=== PATIENT | female | born 1960 | race Hispanic/Latino ===

== ENCOUNTER → 2018-09-12 | Outpatient (CLI) | payer OTHER ==
--- NOTE | 2018-09-12 16:32 | Diagnostic Imaging Report ---
EXAMINATION: PA and lateral views of the chest. COMPARISON: None CLINICAL HISTORY: +PPD test DISCUSSION: Lungs are well-inflated. No focal consolidation, pleural effusion, or pneumothorax. Tortuous thoracic aorta. Normal heart size. No pulmonary edema. No acute osseous abnormality. IMPRESSION: No acute cardiopulmonary abnormality. No radiographic findings of active granulomatous infection. Signed by: Dr. Pk Braun M.D. on 09/12/2018 4:29 PM
== END ==
LOC: RAD 15:24
PROVIDERS: ATTEND Internal Medicine
DX: R76.11 Nonspecific reaction to tuberculin skin test without active tuberculosis (principal)
CPT/HCPCS: 71046

== ENCOUNTER → 2019-01-10 | Outpatient (CLI) | payer BC ==
--- NOTE | 2019-01-10 16:16 | Diagnostic Imaging Report ---
EXAMINATION: Bone mineral density study. COMPARISON: None. HISTORY: Screening for osteoporosis DISCUSSION: Evaluation of the left hip and lumbar spine was performed utilizing a DEXA Hologic bone densitometer. The study is technically adequate. The left hip total bone mineral density is 0.785 gm/cm2, the T-score is -1.3, and the Z-score is -0.4. The left hip femoral neck bone mineral density is 0.732 gm/cm2, the T-score is -1.2, and the Z-score is 0.0. The lumbar spine total bone mineral density is 0.901 gm/cm2, the T-score is -1.3, and the Z-score is 0.0. IMPRESSION: 1. WHO classification of osteopenia for the left hip with increased risk of fracture. 10 year major osteoporotic fracture risk 3.9% 2. WHO classification of osteopenia for the lumbar spine with increased risk of fracture. The patient's fracture risk is compared to an age-matched control. Medical evaluation for secondary causes of low bone bone mineral density may be appropriate. Correlate clinically for the necessity and timing of the next bone mineral density study. National [employer]opor[employer] recommendations: Initiate therapy to reduce fracture risk in postmenopausal women with -BMD t-scores below -2.0 by central DXA with no risk factors -BMD t-scores below -1.5 by central DXA with one or more risk factors (first deg relative with hip fracture, prior personal fracture, low body weight, smoking) -A prior vertebral or hip fracture AACE (Clinical Endocrinology) recommends treating the following: Postmenopausal women who have osteoporosis as diagnosed by fragility fractures or t scores -2.5 or below Postmenopausal women who have risk factors (including fh of hip fracture, low body weight, smoking, risk of falling, high bone turnover, advancing age) and borderline low BMD T scores of -1.5 or below Adequate intake of calcium (at least 1200mg/day) and vitamin D (400-800 IU/day). Regular weight bearing and muscle - strengthening exercises Avoid smoking and excessive alcohol Signed by: Dr. Moe Lainez M.D. on 01/10/2019 4:13 PM
== END ==
LOC: MAMMO 15:04
PROVIDERS: ATTEND Internal Medicine Endocrinology, Diabetes & Metabolism
DX: Z12.31 Encounter for screening mammogram for malignant neoplasm of breast (principal); Z13.820 Encounter for screening for osteoporosis
CPT/HCPCS: 77067; 77080

== ENCOUNTER → 2020-02-15 | Outpatient (CLI) | payer OTHER ==
--- NOTE | 2020-02-15 14:18 | Diagnostic Imaging Report ---
EXAMINATION: SP LUMBAR, COMPLETE MIN 4VW, SACRUM X-RAY INDICATION: Spondylosis COMPARISON: None FINDINGS: AP, lateral and oblique radiographs of the lumbar spine and AP and lateral radiographs of the sacrum/coccyx were obtained. No acute fracture. Vertebral body heights are well-maintained. Grade 1 anterolisthesis at L4-5. No definite associated spondylolysis. Mild multilevel degenerative changes. Nonobstructive bowel gas pattern. No free air. IMPRESSION: No acute osseous injury. Grade 1 anterolisthesis at L4-5 without definite associated spondylolysis. Mild multilevel degenerative changes. Signed by: Dario Pagan MD on 02/15/2020 2:15 PM
== END ==
LOC: RAD 13:09
PROVIDERS: ATTEND Internal Medicine
DX: M47.816 Spondylosis without myelopathy or radiculopathy, lumbar region (principal)
CPT/HCPCS: 72110; 72220

== ENCOUNTER 2022-12-07 20:19 | Emergency (ER) | payer OTHER ==
[~2022-12-07] VITALS: Ht 160 cm; Wt 59.9 kg
[2022-12-07 21:16] LABS: BASOPHILS # (AUTO) 0.1 (0.0-0.1); BASOPHILS % 0.9 % (0.0-1.0); EOSINOPHILS % 0.1 % (0.0-6.0); HEMATOCRIT 38.9 % (34.2-44.1); HEMOGLOBIN 13.1 g/dL (12.0-16.0); LYMPHOCYTES # (AUTO) 3.9 (1.0-3.2); LYMPHOCYTES % 51.8 % (18.0-39.1); MEAN CORPUSCULAR HEMOGLOBIN 29.1 pg (28-32); MEAN CORPUSCULAR HGB CONC 33.7 g/dL (31-35); MEAN CORPUSCULAR VOLUME 86.4 fL (81-99); MONOCYTES # (AUTO) 0.6 (0.2-0.8); NEUTROPHILS # (AUTO) 2.9 (2.1-6.9); PLATELET COUNT 332 x10e3/uL (140-360); RED CELL DISTRIBUTION WIDTH 12.2 % (11.7-14.4)
[2022-12-07 21:32] LABS: ALBUMIN 3.6 g/dL (3.5-5.0); ALBUMIN/GLOBULIN RATIO 1.1 (0.8-2.0); ANION GAP 12.8 mmol/L (8-16); CALCIUM 8.6 mg/dL (8.4-10.2); CREATININE, SERUM 0.78 mg/dL (0.57-1.11); POTASSIUM 3.8 mmol/L (3.5-5.1)
[2022-12-07 21:38] LABS: CREATINE KINASE MB 1.2 ng/mL (0-5.0)
[2022-12-07] MEDS ORDERED: ACETAMINOPHEN 325 MG TAB PO ONE (22:15)
[2022-12-07] MEDS ORDERED: ACETAMINOPHEN 325 MG TAB ONE (22:33)
[2022-12-07] MEDS ORDERED: METHOCARBAMOL750 MG PO (22:53)
[2022-12-07] MEDS ORDERED: NAPROSYN500 MG PO (22:53)
[2022-12-07 23:00] VITALS: BP 123/79
== END 2022-12-07 23:02 | disposition home or self-care (01) ==
LOC: ER 20:33
DX: R05.9 Cough, unspecified (principal); S29.012A Strain of muscle and tendon of back wall of thorax, initial encounter; M25.512 Pain in left shoulder; M25.511 Pain in right shoulder; I10 Essential (primary) hypertension; E78.5 Hyperlipidemia, unspecified; M81.0 Age-related osteoporosis without current pathological fracture; Z20.822 Contact with and (suspected) exposure to COVID-19; R94.31 Abnormal electrocardiogram [ECG] [EKG]
CPT/HCPCS: 36415; 71045; 80053; 82550; 82553; 84484; 85025; 93005; 99284; U0002